=== PATIENT | male | born 1960 | race Caucasian/White ===

== ENCOUNTER 2017-03-01 05:49 | Inpatient (IN) | payer BC, OTHER ==
[2017-03-01] MEDS ORDERED: TRANEXAMIC ACID 1,000 MG in NORMAL SALINE 100 ML IV PRN (06:00)
[2017-03-01] MEDS ORDERED: ceFAZolin SODIUM 1 GM VIAL IV PRN (06:00)
[2017-03-01] MEDS ORDERED: RINGER'S SOLUTION,LACTATED 1,000 ML IV PRN (06:00)
[2017-03-01] MEDS ORDERED: MORPHINE SULFATE 15 MG TABLET.SA PO PRN (06:00)
[2017-03-01] MEDS ORDERED: ROPIVACAINE HCL/PF 100 MG, EPINEPHrine 0.2 MG, KETOROLAC TROMETHAMINE 30 MG in NORMAL S... IJ PRN (06:00)
[2017-03-01] MEDS ORDERED: RINGER'S SOLUTION,LACTATED 700 ML IV ONE (07:40)
[2017-03-01] MEDS ORDERED: RINGER'S SOLUTION,LACTATED 1,000 ML IV ONE ×2 (08:10→09:10)
[2017-03-01] MEDS ORDERED: ZOLPIDEM TARTRATE 5 MG TABLET PO PRN (09:50)
[2017-03-01] MEDS ORDERED: PROMETHAZINE HCL 5 MG in DEXTROSE 5 % IN WATER 50 ML IV PRN ×2 (09:50)
[2017-03-01] MEDS ORDERED: ONDANSETRON HCL/PF 2 MG/ML VIAL IV PRN (09:50)
[2017-03-01] MEDS ORDERED: ACETAMINOPHEN 500 MG TABLET PO PRN (09:50)
[2017-03-01] MEDS ORDERED: MAGNESIUM HYDROXIDE 30 ML UDC PO PRN (09:50)
[2017-03-01] MEDS ORDERED: DEXTROSE 5%-LACTATED RINGERS 1,000 ML IV PRN (09:50)
[2017-03-01] MEDS ORDERED: diphenhydrAMINE HCL 50 MG/ML VIAL IV PRN (09:50)
[2017-03-01] MEDS ORDERED: MAG HYDROX/ALUMINUM HYD/SIMETH 30 ML UDC PO PRN (09:50)
--- NOTE | 2017-03-01 09:54 | OR ---
Operative Report - Dictated Report Narrative: Date: 03/01/2017 Preoperative diagnosis: Left Knee degenerative joint disease. Postoperative diagnosis: Left Knee degenerative joint disease. Procedure: Left Total knee arthroplasty. Surgeon: Blaise Flores M.D. Rn International: Kendall Machado PA-C Anesthesia: Spinal with regional block and local periarticular joint injection. Complications: None Specimens: Bone for disposal. Estimated blood loss: Minimal. Tourniquet time: 103 Minutes at 325 millimeters of mercury. Retained implants: Depuy Attune size 8 left lugged cemented posterior stabilized femoral component. Size 8 fixed-bearing cemented tibial platform. 8 by 5 millimeter posterior stabilized cross-linked tibial insert. 41 millimeter medialized patella button. Indications: Mr. Lacey is a 56-year-old gentleman who has had long-standing left knee pain and arthrosis. This patient was followed in my clinic for period of time with significant complaints of left knee pain consistent with arthritic changes. He had failed conservative measures including, but not limited to, activity modification, passage of time, medications, and other conservative measures. Patient wished to proceed with surgical treatment. The risks, benefits, and alternatives were discussed in clinic. The risks of , blood clots, bleeding, infection, nerve/tendon blood vessel/ injury, malposition of components, intraoperative fracture, postoperative limited range of motion, persistent pain, failure of components, and need for additional procedures. Patient wished to proceed consent was obtained after answering all questions. Procedure: After marking the correct extremity on the floor, the patient was taken to the operating room. A timeout was performed. IV antibiotics consisting of Ancef were administered prior to the procedure. A regional followed by spinal anesthetic was induced by anesthesia, per my request, on the operative table with all bony prominences well-padded. Curtis catheter was placed, and a bump was placed under the operative side buttock. SCDs and STEPHANIE hose were utilized on the nonoperative leg. A well-padded tourniquet was applied to the operative thigh. The operative leg was then pre-scrubbed with alcohol prepped, and draped in a standard sterile fashion. After exsanguinating the extremity with an Esmarch bandage, the tourniquet was inflated. After marking out the anterior knee for standard incision centered over the patella, the skin was incised and dissected down to the joint retinaculum. The joint retinaculum was marked out as well as the horizontal axis of the patella, and a standard medial parapatellar arthrotomy was then made. The most proximal aspect of the quadriceps tendon and the patella tendon insertion were protected from release. A partial synovectomy was performed as well as a resection of the infrapatellar fat pad. The distal femoral fat pad proximal to the trochlea was also resected using cautery. The soft tissues were elevated off the medial aspect of the proximal tibia using a Horn elevator ensuring that we did not transect the medial collateral ligament. Upon initial evaluation range of motion was approximately 5 degrees to 120 degrees of flexion. There were signs of advanced arthrosis in the medial, lateral, and patellofemoral joint spaces. There were large marginal osteophytes which were removed with a rongeur. The knee was hyperflexed and the patella was tucked laterally. Protecting the surrounding soft tissues with Homans, an entry drill was placed down the femoral canal using Whitesides line for guidance into the entry point. The intramedullary femoral alignment william was utilized in order to cut the distal femur in 5 degrees of valgus resecting 10 millimeters of bone. Next the distal femur was sized to a size 8. A posterior referencing guide was utilized to place the distal femoral cutting block in 3 degrees of external rotation. This was pinned into place. The rotation was confirmed both visually and based on anatomic landmarks. The 4 in 1 cutting jig of the appropriate size was utilized in order to make all bony cuts. The angle wing was used to ensure no notching. Retractors were utilized in order to protect surrounding soft tissues. This cut did not result in any excessive notching. We then cut the box centered over the distal femur. This allowed for resection of the anterior and posterior cruciate ligaments. I then turned my attention to the preparation of the tibia. Using an extra medullary tibial alignment william, 2 millimeters of bone was resected off the medial articular surface. This was made perpendicular to the mechanical axis of the joint with the alignment william centered over the ankle mortise. The alignment william was checked and was noted to be parallel to the mechanical axis, centered over the medial one third of the tibial tubercle, paralleling the anterior surface of the tibia. We then turned our attention to the remaining meniscus and soft tissues. These were removed while protecting the surrounding ligaments and soft tissues. The marginal osteophytes off the anterior, posterior, medial, lateral aspects of the femur and tibia were removed. The tibia was sized out to a size 8. Next the tibia was drilled and punched in an externally rotated position. Next the trial femur and a series of tibial inserts were utilized in order to allow for full extension and maximal flexion. It was found that a 5 millimeter insert gave the best range of motion and stability at multiple flexion points as well as at full extension there was less than 2 mm of gapping both medially and laterally. There is minimal anterior translation with the knee at 90 degrees of flexion and no signs of being able to dislocate the knee. The patella was then prepared. The initial thickness was 26 millimeters. This was reamed down to 15 millimeters parallel to the anterior surface of the patella. It was sized out to a size 41 medialized patella button. This was then drilled and trialed. Without any medial restraint the patella tracked appropriately and did not sublux or dislocate. At this point, it was felt these were the appropriate sized implants, and all trials were removed. The standard periarticular joint injection consisting of ropivacaine, Toradol, and epinephrine were injected into the periarticular joint tissues. The bony surfaces were thoroughly irrigated with a pulsatile- suction saline irrigation device. A bone plug from the prior resected anterior chamfer cut was placed into the drill hole at the distal femur. The bony surfaces were then dried in preparation for placement of the implants. The cement was vacuum mixed per the district or district office director's instructions. The cement was placed on the dry bony surfaces and posterior aspect of the implants. The implants were impacted into place, removing all extruded cement. At this point anesthesia administered tranexamic acid per protocol intravenously. The knee was placed in extension with axial loading with the trial insert while the cement cured. Once the cement cured, all remaining extruded cement was removed. The knee was placed through a range of motion with the trial insert to ensure appropriate range of motion and stability. Final range of motion was approximately 0 to 120 degrees. The knee was again thoroughly irrigated with pulsatile saline lavage. The final polyethylene insert was then impacted into place ensuring no retained soft tissues. The remaining periarticular joint injection was injected. A medium Hemovac drain was placed exiting superior laterally. The knee was then placed over a triangle and the arthrotomy was closed with interrupted #1 Vicryl after thoroughly irrigating the joint. The deep and subcutaneous tissues were closed with interrupted 0 and 3-0 Vicryl respectively. Skin was closed with a running subcutaneous 3-0 Monocryl and Prineo Dermabond dressing. 4 x 4's, Sof-Rol, and a full leg Velasquez wrap were applied. All sponge, needle, blade, and instrument counts were correct prior to closing the wounds. Postoperative condition: The patient was awoken and transferred to the postanesthesia care unit in stable condition. Plan is to be admitted to the inpatient medical/surgical floor postoperatively for 24 hours of IV antibiotics , physical therapy, occupational therapy, and medical comanagement. Patient will be weightbearing as tolerated with range of motion as tolerated. DVT prophylaxis will be with SCDs, STEPHANIE hose, and pharmacological anticoagulation. Anticipated hospital stay is approximately 2-4 days.
[2017-03-01] MEDS ORDERED: HYDROmorphone HCL 2 MG/ML VIAL IV PRN (09:56)
--- NOTE | 2017-03-01 10:17 | OR ---
Anesthesia Procedure Note - Anesthesia Procedure Note Date of Service: 03/01/17 Narrative: Vital Signs - Last Taken Temp 36.5 C 03/01/17 07:07 Pulse 70 03/01/17 07:07 Resp 16 03/01/17 07:07 BP 131/93 03/01/17 07:07 Pulse Ox 97 03/01/17 07:07 O2 Oxygen Delivery Method Room Air 03/01/17 10:14 ANESTHESIA PROCEDURE NOTE Date of Procedure: 03/01/2017. Time of procedure: 739. Performed by: Romel Frazier CRNA Engineering Faculty Member: None. Preprocedure diagnosis: Left total knee arthroplasty. Post procedure diagnosis: Same. Procedure: Left ultrasound guided femoral block for postoperative analgesia. Indications: The patient is a 56 -year-old male, who is been consulted for a nerve bloc for postoperative pain controll. Findings: See below. Details of the procedure: The tissue over the intended target site was cleansed with ChloraPrep. 1 ml Lidocaine 1 % was infiltrated to the skin and subcutaneous tissue. Under sterile technique and ultrasound guidance a 21-gauge block needle was inserted anterior to the left femoral nerve . 30 mL's of 0.5% bupivacaine plus epinephrine 1 200,000 was injected after negative aspiration for blood. Spread of local anesthetic surroundind the femoral nerve was observed throughout the injection with ultrasound. The needle was removed intact. No complications were noted. The images were retained in the Hospital medical database . EBL: Minimal. Fluids: N/A. Specimen: N/A. Post procedure condition: The patient tolerated the procedure well. No complications were noted. Thank you for this consultation. Romel Frazier CRNA
[2017-03-01] MEDS: KETOROLAC TROMETHAMINE 30 MG/ML VIAL IV SCH ×3 (10:55→22:49)
[2017-03-01] MEDS: ceFAZolin SODIUM 1 GM in DEXTROSE 5 % IN WATER 100 ML IV SCH ×6 (11:03→22:49)
[2017-03-01] MEDS: oxyCODONE HCL/ACETAMINOPHEN 1 TAB TABLET PO PRN ×2 (13:01→18:32)
[2017-03-01] MEDS: SENNOSIDES/DOCUSATE SODIUM 1 TAB TABLET PO SCH (20:06)
[2017-03-01] MEDS: MORPHINE SULFATE 15 MG TABLET.SA PO SCH (20:06)
[2017-03-02] MEDS: oxyCODONE HCL/ACETAMINOPHEN 1 TAB TABLET PO PRN ×5 (03:13→22:44)
[2017-03-02] MEDS: KETOROLAC TROMETHAMINE 30 MG/ML VIAL IV SCH ×4 (03:14→21:04)
[2017-03-02 05:29] LABS: Hematocrit 36.6 % (42.0-52.0); Hemoglobin 12.5 gm/dL (13.5-18.0); Mean Cell Volume 85.1 fl (78-100); Mean Corpuscular Hemoglobin 29.1 pg (27-31); Mean Corpuscular Hgb Conc 34.2 g/dl (32-36); Mean Platelet Volume 11.5 fl (6.0-9.5); Platelet Count 107 K/mm3 (150-450); Red Cell Distribution Width 13.2 % (11.5-14.0); White Blood Count 6.4 K/mm3 (4.0-10.5)
[2017-03-02 05:47] LABS: Anion Gap 8.6 mmol/L (6.8-13.8); BUN/Creatinine Ratio 17.3 (9.0-21.6); Calcium * 8.1 mg/dL (7.9-10.9); Carbon Dioxide 30.2 mmol/L (24-32.6); Estimated Creat Clear 105.1; Potassium 3.8 mmol/L (3.4-4.6)
--- NOTE | 2017-03-02 08:12 | PN ---
Subjective - Date and Time Seen Date: 03/02/17 Time: 08:09 Subjective Narrative: Patient doing well. Pain controlled. No nausea. No lightheadedness. No CP/ SOB. No complaints. Objective Objective Narrative: Bandages C/D/I. N/V intact LLE. Calf supple. 2+ Dorsalis Pedis pulse. Drain intact. - Vitals Vitals: Last Vital Signs Temp 36.6 C 03/02/17 03:00 Pulse 67 03/02/17 03:00 Resp 18 03/02/17 03:00 BP 130/72 03/02/17 03:00 Pulse Ox 94 03/02/17 03:00 - Abnormal Lab Findings Abnormal Lab Findings: Abnormal Lab Results 03/02/17 Range/Units 05:12 RBC 4.30 L (4.7-6.0) M/mm3 Hgb 12.5 L (13.5-18.0) gm/dL Hct 36.6 L (42.0-52.0) % Plt Count 107 L (150-450) K/mm3 MPV 11.5 H (6.0-9.5) fl - Exam Constitutional: Present: Alert, Oriented x3, Cooperative, No distress Cauti Physician Documentation - Urinary Catheter Management 2-way Urethral Date of Insertion: 03/01/17 Time of Insertion: 08:00 Urethral (Curtis) Date of Insertion: 03/01/17 Date of Removal: 03/02/17 Time of Removal: 07:09 Assessment/Plan - Problems/Diagnosis (1) Status post total left knee replacement Problem: Acute Narrative: PT, anticoagulation, pain control, pull drain today, will need wheeled walker for 4-6 weeks postop. (2) Acute blood loss anemia Problem: Acute Narrative: asymptomatic, recheck labs in am
[2017-03-02] MEDS: MORPHINE SULFATE 15 MG TABLET.SA PO SCH ×2 (09:26→21:04)
[2017-03-02] MEDS: ENOXAPARIN SODIUM 40 MG/0.4 ML SYRG SC SCH (09:26)
[2017-03-02] MEDS: SENNOSIDES/DOCUSATE SODIUM 1 TAB TABLET PO SCH (21:04)
[2017-03-03] MEDS: KETOROLAC TROMETHAMINE 30 MG/ML VIAL IV SCH (03:03)
[2017-03-03 05:44] LABS: Hematocrit 33.9 % (42.0-52.0); Hemoglobin 11.6 gm/dL (13.5-18.0); Mean Cell Volume 85.4 fl (78-100); Mean Corpuscular Hemoglobin 29.2 pg (27-31); Mean Corpuscular Hgb Conc 34.2 g/dl (32-36); Mean Platelet Volume 11.7 fl (6.0-9.5); Platelet Count 98 K/mm3 (150-450); Red Blood Count 3.97 M/mm3 (4.7-6.0); White Blood Count 5.1 K/mm3 (4.0-10.5)
[2017-03-03 05:58] LABS: Anion Gap 8.1 mmol/L (6.8-13.8); BUN/Creatinine Ratio 17.1 (9.0-21.6); Calcium * 8.3 mg/dL (7.9-10.9); Carbon Dioxide 29.8 mmol/L (24-32.6); Estimated Creat Clear 103.9; Potassium 3.9 mmol/L (3.4-4.6)
[2017-03-03] MEDS: oxyCODONE HCL/ACETAMINOPHEN 1 TAB TABLET PO PRN ×2 (07:27→11:42)
[2017-03-03 07:56] VITALS: BP 124/65
--- NOTE | 2017-03-03 09:30 | DS ---
(1) Acute blood loss anemia Problem: Acute (2) Status post total left knee replacement Problem: Acute Description of Stay: Mr. Lacey was admitted to the floor after undergoing left total knee arthroplasty. Tolerated this well. Was admitted to the floor postoperatively for 24 hours of IV antibiotics, pain control, medical comanagement, and occupational and physical therapy. OT and PT were consulted to assist with activities of daily living and ambulation. Was made weightbearing as tolerated with range of motion as tolerated. Pain was initially controlled with IV regimen. This was transitioned to oral once tolerating a by mouth intake. Was resumed on home diet and medications. Had a Curtis catheter inserted and the operating room which was discontinued on postoperative day 1. A drain was placed intraoperatively into the knee which was discontinued on postoperative day 1. Lovenox SCD and STEPHANIE hose were utilized for DVT prophylaxis. Vital signs remained stable to the hospital course. Serial labs were obtained which showed a final hemoglobin of 11.6 grams. BMP was reviewed and was stable. Physical examination throughout the hospital course showed an extremity that had sensation that was intact to light touch, palpable pulses, a benign wound, motor intact to the toes, ankle, and knee. Knee range of motion was approximately 10 degrees to 60 degrees. Once an oral pain regimen was tolerated and physical therapy goals were met, it was felt that they were stable for discharge to home. Instructions: Continue with weightbearing as tolerated and range of motion as tolerated. It is okay to shower and get the wound wet as long as there is no drainage from the wound. Do not bathe or soak the wound. If there is any drainage from the wound keep the wound clean and dry and cover with dry gauze and tape. Change every 2-3 days as needed if there is any drainage. Cover wound while showering if there is any drainage. Continue with physical therapy. Resume home diet. Report any fever over 101.5 Fahrenheit, uncontrolled pain, increased drainage, foul odor of drainage, new or increased calf pain or shortness of breath, or any other significant complaints. A 325mg dialy aspirin will be started after finishing anticoagulation if not allergic. Continue with STEPHANIE hose on the operative extremity until instructed otherwise. No driving until instructed otherwise. Follow up in approximately 10-14 days. Procedures Performed: see notes below List Procedures: Left total knee arthroplasty Discharge Disposition: Home self care Disposition: Home self-care Condition: Good Discharge Activity: Activity as tolerated, Weight bearing Discharge Diet: General/regular food Half-Way Therapy: Physicial Therapy Additional Patient Instructions (free text): Follow up with Dr. Flores on March at 9:45 am. Prescriptions (Any new or edited meds): Enoxaparin Sodium [Lovenox] 40 mg SC Q24H #7 disp.syrin Morphine Sulfate [Ms Contin] 15 mg PO Q12H #20 tablet.sa oxyCODONE HCL/ACETAMINOPHEN [Percocet 5 MG/325 MG] 2 tab PO Q4H PRN #90 tablet PRN Reason: Moderate Pain Complete Home Medications List: Complete Home Medication List: Naproxen Sodium [Aleve] 220 mg PO DAILY 02/16/17 Enoxaparin Sodium [Lovenox] 40 mg SC Q24H #7 disp.syrin 03/03/17 Morphine Sulfate [Ms Contin] 15 mg PO Q12H #20 tablet.sa 03/03/17 Sennosides/Docusate Sodium [Senokot-S] 2 tab PO HS tablet 03/03/17 oxyCODONE HCL/ACETAMINOPHEN [Percocet 5 MG/325 MG] 2 tab PO Q4H PRN #90 tablet 03/03/17 Amb Orders for Discharge: PT Evaluation and Treatment Facility: [facility], Location: Rehabilitation Services
[2017-03-03] MEDS: ENOXAPARIN SODIUM 40 MG/0.4 ML SYRG SC SCH (10:18)
[2017-03-03] MEDS: MORPHINE SULFATE 15 MG TABLET.SA PO SCH (10:18)
== END 2017-03-03 13:30 | disposition home or self-care (01) | DRG 470 ==
LOC: MS 05:49
PROVIDERS: ADMIT Orthopaedic Surgery; ATTEND Orthopaedic Surgery
PROC: 0SRD0J9 Replacement of Left Knee Joint with Synthetic Substitute, Cemented, Open Approach (ICD-10-PCS; principal; 2017-03-01 08:00)
DX: M17.12 Unilateral primary osteoarthritis, left knee (principal); D62 Acute posthemorrhagic anemia

== ENCOUNTER 2019-06-29 10:17 | Observation (INO) ==
[2019-06-29 10:49] LABS: Hematocrit 49.3 % (42.0-52.0); Hemoglobin 16.9 gm/dL (13.5-18.0); Mean Cell Volume 91.5 fl (78-100); Mean Corpuscular Hemoglobin 31.4 pg (27-31); Mean Corpuscular Hgb Conc 34.3 g/dl (32-36); Mean Platelet Volume 11.9 fl (8-11.3); Neutrophil # 3.2 K/mm3 (1.3-6.0); Neutrophil % 68.4 % (42-75.0); Platelet Count 152 K/mm3 (150-450); Red Blood Count 5.39 M/mm3 (4.7-6.0); Red Cell Distribution Width 13.1 % (11.5-14.0); White Blood Count 4.7 K/mm3 (4.0-10.5)
[2019-06-29 11:10] LABS: Albumin * 3.6 gm/dl (3.4-5.0); Anion Gap 12.7 mmol/L (6.8-13.8); BUN/Creatinine Ratio 19.5 (9.0-21.6); Bilirubin, Total 0.8 mg/dL (0.0-1.1); Ca. Corrected For Albumin 8.8 mg/dL (8.4-10.2); Calcium * 8.8 mg/dL (7.9-10.9); Carbon Dioxide 26.5 mmol/L (24-32.6); Potassium 4.2 mmol/L (3.4-4.6); Total Protein 6.8 gm/dL (6.2-8.2)
[2019-06-29 11:11] LABS: Troponin I 0.017 ng/mL (0.00-0.10)
--- NOTE | 2019-06-29 11:21 | ERNOTE ---
Dyspnea - Date Date of Service: 06/29/19 - General Presenting Symptoms: shortness of breath Time Seen by Provider: 06/29/19 10:27 Source: patient Exam Limitations: no limitations - Immun/Allergies/Home Medications Immunizations: IMMUNIZATION HX Immunizations Up to Date Yes Allergies/Adverse Reactions: Allergies Penicillins Allergy (Severe, Verified 03/30/18 12:15) hives and throat swelling Home Medications: HOME MEDICATIONS NK 02/22/18 [Last Taken Unknown] - History of Present Illness Narrative: Patient presents to the ED for SOB. He has been having progressive SOB for the last 3 months. He relates that he has become concerned more because his sister just from an aneurysm and he has a strong family history of heart disease. He does feel stress but no chest pain, just tightness for the last 3 months. No fever or vomiting. SOB worse with exertion. No calf pain or leg swelling. Has not seen anyone else for this. Severity: moderate Treatment MANAGEMENT ANALYST: none Initiating event: Denies: upper resp illness Frequency of episodes: Reports: frequent episodes Modifying Factors - (Improves): Reports: nothing Modifying Factors (Worsens): Reports: activity Associated Symptoms-Dyspnea: Denies: fever/chills, cough, wheezing, ankle/leg swelling, weakness Prior Treatment: Denies: recently seen Review of Systems - Review of Systems Constitutional: Absent: fever EYE: Present: no symptoms reported ENT: Present: no symptoms reported Respiratory: Present: shortness of breath Cardiology: Present: other - cehst tightness. Absent: chest pain Gastrointestinal/Abdominal: Absent: abdominal pain Genitourinary: Absent: dysuria Musculoskeletal: Present: no symptoms reported All Other Systems: All systems neg except as marked Medical History (Last Reviewed 06/29/19 @ 11:19 by Isreal Price MD) Acute blood loss anemia (Acute) Left knee DJD Onset Date: Unknown Left knee pain Onset Date: Unknown Rotator cuff tear Onset Date: Unknown Surgical History: Surgical History (Last Reviewed 06/29/19 @ 11:19 by Isreal Price MD) Status post total left knee replacement (Chronic) 03/01/17 Sandra History of adenoidectomy Onset Date: Unknown History of repair of rotator cuff Onset Date: 2007 left shoulder, [facility] Dr Benjamin History of tonsillectomy Onset Date: Unknown History of total knee arthroplasty Onset Date: 03/01/17 WENDY Flores Family History: Family History (Last Reviewed 06/29/19 @ 11:19 by Isreal Price MD) Mother , 87-old age Dementia Father , 47 Myocardial infarction Sister Alive and well Brother Alive and well Social History: (Last Reviewed 06/29/19 @ 11:19 by Isreal Price MD) Social History: fdc: No Marital status: household members: spouse current occupational status: employed 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 Highest education level completed: high school graduate Service: No Tobacco: Smoking Status: Current every day smoker tobacco type: cigarettes Smoking cigarettes per day: 4 Alcohol: alcohol intake: current alcohol intake frequency: holiday/special occasion Substance Use: substance use type: does not use Dietary Habits: caffeine: Yes Type: coffee Exercise: Physical activity functional status: normal ROM and activity Moderate/strenuous exercise - number of days: 4 Physical Exam - Physical Exam General Appearance: Present: alert, no apparent distress Head Exam: Present: normal inspection, no evidence of injury Eye Exam: Normal inspection: bilateral, PERRL: bilateral Ears, Nose, Throat: Present: normal ENT inspection Neck: Present: normal inspection Respiratory: Present: no respiratory distress, normal breath sounds, no accessory muscle use, lungs clear Cardiovascular/Chest: Present: regular rate, rhythm, normal peripheral pulses Gastrointestinal/Abdominal: Present: normal bowel sounds, nontender, nondistended, soft Back Exam: Absent: CVA tenderness (R), CVA tenderness (L) Extremity Exam: Present: normal inspection, non-tender, normal range of motion, no edema Neurological Exam: Present: alert, no motor/sensory deficits Skin Exam: Present: normal color, warm/dry Progress - Results and Orders Patient's Lab Results:: I have reviewed the patient's lab results. - Vital Signs Patient's Vital Signs:: I have reviewed the patient's vital signs. Vital Signs: Vital Signs 06/29/19 10:27 Temperature 36.1 C Pulse Rate 85 Respiratory Rate 14 Blood Pressure 116/81 O2 Sat by Pulse Oximetry 99 - EKG EKG #1 EKG: NSR EKG read: Interp. by me EKG Comments: NSR rate 85. PVC. Three are diffuse non-specific ST/T wave changes without clear evidence of STEMI. THis is changed fromlast EKG. - X-Ray X-Ray #1 X-Ray: chest Interpretation: Interp. by me X-ray Comments: No real time radiology reads. New onset CHF by my interpretation. - CT/Ultrasound CT/Ultrasound Narrative: I reviewed official radiology report for CT chest. - Progress/Reassessment Chief Complaint: Dyspnea Progress Note-Subjective: 06/29/19 13:52 Patient has new onset CHF with EKG changes. IV Lasix given and 500 cc urine ou tput. Troponin negative but EKF is changed from prior and acute new pulmonry edema on CXR. Significant family history of cardiac Dz and no PCP for f/u and no prior w/u. All Sx new and have not been previously evaluated. D/W Dr Monsalve, will sha diuresis, r/o and further work up. Patient agreeable. Departure Clinical Impression: New onset of congestive heart failure, Nonspecific ST-T wave electrocardiographic changes, Pulmonary edema - Departure Disposition: Still a patient Condition: Stable
[2019-06-29] MEDS ORDERED: FUROSEMIDE 10 MG/ML VIAL IV ONE (11:36)
--- NOTE | 2019-06-29 18:43 | HP ---
Chief Complaint - Chief Complaint Date of Service: 06/29/19 Time of Service: 18:25 Chief Complaint: shortness of breath History of Present Illness: Nir Duron is a 58-year-old white male with no significant past medical history in the past who was admitted on 06/29/2019 for shortness of breath. 3 months prior to admission the patient started noticing that he would be getting more short of breath in the gym which is new to him. Over time he started having increasing shortness of breath associated with orthopnea. He denies any chest pain or palpitation but does feel some chest heaviness at times with stress. 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 He said his last one was 4 months ago and was normal. He denies any weight gain, swelling of extremities, recent fever or chills, recent upper respiratory tract infections or flulike symptoms. He denies any calf pains or intermittent claudications. The patient also says he was never a strong cigarette smoker taking it only about 3 cigarettes/day. He also does not drink alcohol. He does have a strong family history of cardiac disease. His father of heart attack in his late 40s early 50s. His sister just from an aneurysm recently. In the emergency room his hemoglobin was 16.9, WBC of 4.7, creatinine of 1.13, GFR of 71, BNP of 656, troponin of less than 0.0117. His chest x-ray showed no acute cardiopulmonary findings, except for COPD findings. His EKG showed normal sinus rhythm with diffuse ST-T wave depression . This is a new finding compared to his old EKG. his d-dimer was elevated I 0.[address] angiogram of his chest done showed no evidence of pulmonary embolism, positive fluid overload/possible congestive heart failure. He was given IV Lasix and was admitted for observation. Medical History (Last Reviewed 06/29/19 @ 14:41 by Rosalina Arellano RN) Acute blood loss anemia (Acute) Left knee DJD Onset Date: Unknown Left knee pain Onset Date: Unknown Rotator cuff tear Onset Date: Unknown Surgical History: Surgical History (Last Reviewed 06/29/19 @ 14:41 by Rosalina Arellano RN) Status post total left knee replacement (Chronic) 03/01/17 Sandra History of adenoidectomy Onset Date: Unknown History of repair of rotator cuff Onset Date: 2007 left shoulder, [facility] Dr Benjamin History of tonsillectomy Onset Date: Unknown History of total knee arthroplasty Onset Date: 03/01/17 WENDY Flores Family History: Family History (Last Updated 06/29/19 @ 14:43 by Rosalina Arellano, RN) Mother , 87-old age Dementia Father , 47 Myocardial infarction Sister Alive and well Aneurysm Brother Myocardial infarction Alive and well Social History: (Last Reviewed 06/29/19 @ 14:43 by Rosalina Arellano, TASHIA) Social History: alf: No Marital status: household members: spouse current occupational status: employed 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 Highest education level completed: high school graduate Service: No Tobacco: Smoking Status: Current every day smoker tobacco type: cigarettes Smoking cigarettes per day: 4 Alcohol: alcohol intake: current alcohol intake frequency: holiday/special occasion Substance Use: substance use type: does not use Dietary Habits: caffeine: Yes Type: coffee Exercise: Physical activity functional status: normal ROM and activity Moderate/strenuous exercise - number of days: 4 Review Of Systems (GEN) - Review of Systems Generalized/Overall Review: Absent: Weakness, Fever EENTM: Absent: Blurred Vision Respiratory: Present: Shortness of Breath, Orthopnea. Absent: Cough, Wheezing Cardiac: Present: Other - chest tightness/heaviness. Absent: Chest Pain, Edema, Palpitations Abdominal: Absent: Nausea, Vomiting, Abdominal Pain Genitourinary: Absent: Urgency, Frequency Musculoskeletal: Present: Joint Pain Neurological: Absent: Headache Skin: Absent: Lesions, Rash Immunizations: IMMUNIZATION HX Immunizations Up to Date Yes Allergies/Adverse Reactions: Allergies Allergy/AdvReac Type Severity Reaction Status Date / Time Penicillins Allergy Severe hives and Verified 06/29/19 14:43 throat swelling Home Medications: HOME MEDICATIONS NK 02/22/18 [Last Taken Unknown] Exam - Exam Vital Signs: Vital Signs - Last Taken Temp 36.3 C 06/29/19 14:44 Pulse 77 06/29/19 14:44 Resp 14 06/29/19 14:44 BP 112/72 06/29/19 14:44 Pulse Ox 98 06/29/19 14:44 Constitutional: Present: Alert, Oriented x3, Cooperative ENT Exam: Present: hearing grossly normal Eye Exam: bilateral eye: normal inspection, PERRL, EOMI Neck: Present: supple. Absent: lymphadenopathy (R), lymphadenopathy (L) Respiratory: Present: normal breath sounds, No rales, No wheezing Cardiovascular/Chest: Present: normal peripheral pulses, regular rate, rhythm, no JVD, no murmur Abdomen: Present: Normal bowel sounds, soft, nontender, nondistended Extremity: Present: no pedal edema, no calf tenderness Diagnostic Studies: Abnormal Lab Results 06/29/19 06/29/19 06/29/19 Range/Units 10:35 10:35 10:35 MCH 31.4 H (27-31) pg MPV 11.9 H (8-11.3) fl Lymphocytes # 0.94 L (1.5-3.5) k/mm3 D-Dimer 0.54 H (0.19-0.49) ug/mL B-Natriuretic Peptide 656 H (5-175) pg/mL Laboratory Results WBC 4.7 K/mm3 (4.0-10.5) 06/29/19 10:35 RBC 5.39 M/mm3 (4.7-6.0) 06/29/19 10:35 Hgb 16.9 gm/dL (13.5-18.0) 06/29/19 10:35 Hct 49.3 % (42.0-52.0) 06/29/19 10:35 MCV 91.5 fl (78-100) 06/29/19 10:35 MCH 31.4 pg (27-31) H 06/29/19 10:35 MCHC 34.3 g/dl (32-36) 06/29/19 10:35 RDW 13.1 % (11.5-14.0) 06/29/19 10:35 Plt Count 152 K/mm3 (150-450) 06/29/19 10:35 MPV 11.9 fl (8-11.3) H 06/29/19 10:35 Immature Gran % (Auto) 0.20 % (0.001-0.429) 06/29/19 10:35 Immature Gran # (Auto) 0.01 K/mm3 (0.000-0.0310) 06/29/19 10:35 Neutrophils % 68.4 % (42-75.0) 06/29/19 10:35 Lymphocytes % 20.0 % (20-51) 06/29/19 10:35 Monocytes % 8.7 % (0.0-9) 06/29/19 10:35 Eosinophils % 2.1 % (0.0-3.0) 06/29/19 10:35 Basophils % 0.6 % (0.0-1.0) 06/29/19 10:35 Nucleated RBC % 0.0 k/mm3 (0-1) 06/29/19 10:35 Neutrophils # 3.2 K/mm3 (1.3-6.0) 06/29/19 10:35 Lymphocytes # 0.94 k/mm3 (1.5-3.5) L 06/29/19 10:35 Monocytes # 0.4 k/mm3 (0.0-1.0) 06/29/19 10:35 Eosinophils # 0.1 k/mm3 (0.0-0.7) 06/29/19 10:35 Absolute Basophils 0.0 k/mm3 (0.0-0.1) 06/29/19 10:35 D-Dimer 0.54 ug/mL (0.19-0.49) H 06/29/19 10:35 Sodium 140 mmol/L (132-142) 06/29/19 10:35 Plasma Sodium 140 mmol/L (130-142) 06/29/19 10:35 Potassium 4.2 mmol/L (3.4-4.6) 06/29/19 10:35 Chloride 105 mmol/L (97-106) 06/29/19 10:35 Carbon Dioxide 26.5 mmol/L (24-32.6) 06/29/19 10:35 Anion Gap 12.7 mmol/L (6.8-13.8) 06/29/19 10:35 BUN 22 mg/dL (6-23) 06/29/19 10:35 Creatinine 1.13 mg/dL (0.4-1.4) 06/29/19 10:35 Est GFR (Non-Af Amer) 71 mL/min (60-130) 06/29/19 10:35 BUN/Creatinine Ratio 19.5 (9.0-21.6) 06/29/19 10:35 Random Glucose 103 mg/dL (70-110) 06/29/19 10:35 Calcium 8.8 mg/dL (7.9-10.9) 06/29/19 10:35 Calcium Adj for Albumin 8.8 mg/dL (8.4-10.2) 06/29/19 10:35 Total Bilirubin 0.8 mg/dL (0.0-1.1) 06/29/19 10:35 AST 20 U/L (0-48) 06/29/19 10:35 ALT 23 U/L (19-67) 06/29/19 10:35 Alkaline Phosphatase 83 U/L (50-170) 06/29/19 10:35 Troponin I Less than 0.017 ng/mL (0.00-0.10) 06/29/19 17:00 B-Natriuretic Peptide 656 pg/mL (5-175) H 06/29/19 10:35 Total Protein 6.8 gm/dL (6.2-8.2) 06/29/19 10:35 Albumin 3.6 gm/dl (3.4-5.0) 06/29/19 10:35 Assessment/Plan - Narrative Narrative: Nir is an 58-year-old white male who was admitted for increasing shortness of breath associated with orthopnea. His CT scan of his chest showed fluid overload/pulmonary congestion. He did have EKG findings of ST T wave depression with normal troponins x2. We will repeat an EKG. He did get IV Lasix in the emergency room and has noticed clinical improvement with his shortness of breath after diuresing. Will observe him overnight and likely repeat a third EKG with troponin in the morning . If still negative will discharge him home and schedule him an echocardiogram and a treadmill nuclear stress test as an outpatient. If those are within normals we may have to repeat the pulmonary function tests as his chest x-ray did show COPD findings. - Assessment/Plan (1) New onset of congestive heart failure Problem: Acute (2) Nonspecific ST-T wave electrocardiographic changes Problem: Acute (3) Pulmonary edema Problem: Acute (4) Status post total left knee replacement Problem: Chronic
[2019-06-30] MEDS ORDERED: FUROSEMIDE 10 MG/ML VIAL IV ONE (07:00)
[2019-06-30 07:04] LABS: Anion Gap 12.5 mmol/L (6.8-13.8); BUN/Creatinine Ratio 19.8 (9.0-21.6); Blood Urea Nitrogen 21 mg/dL (6-23); Calcium * 8.7 mg/dL (7.9-10.9); Carbon Dioxide 26.6 mmol/L (24-32.6); Chloride 104 mmol/L (97-106); Estimated Creat Clear 78.6; Glucose * 104 mg/dL (70-110); Potassium 4.1 mmol/L (3.4-4.6); Sodium 139 mmol/L (132-142)
[2019-06-30 07:06] LABS: Troponin I Less than 0.017 ng/mL (0.00-0.10)
--- NOTE | 2019-06-30 10:16 | DS ---
(1) New onset of congestive heart failure Problem: Acute (2) Nonspecific ST-T wave electrocardiographic changes Problem: Acute (3) Pulmonary edema Problem: Acute (4) Status post total left knee replacement Problem: Chronic Date of Discharge:: 06/30/19 Hospital Course: Nir Duron is a 58-year-old white male with no significant past medical history in the past who was admitted on 06/29/2019 for shortness of breath. 3 months prior to admission the patient started noticing that he would be getting more short of breath in the gym which is new to him. Over time he started having increasing shortness of breath associated with orthopnea. He denies any chest pain or palpitation but does feel some chest heaviness at times with stress. 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 He said his last one was 4 months ago and was normal. He denies any weight gain, swelling of extremities, recent fever or chills, recent upper respiratory tract infections or flulike symptoms. He denies any calf pains or intermittent claudications. The patient also says he was never a strong cigarette smoker taking it only about 3 cigarettes/day. He also does not drink alcohol. He does have a strong family history of cardiac disease. His father of heart attack in his late 40s ea rly 50s. His sister just from an aneurysm recently. In the emergency room his hemoglobin was 16.9, WBC of 4.7, creatinine of 1.13, GFR of 71, BNP of 656, troponin of less than 0.0117. His chest x-ray showed no acute cardiopulmonary findings, except for COPD findings. His EKG showed normal sinus rhythm with diffuse ST-T wave depression . This was a new finding compared to his old EKG. His d-dimer was elevated at 0.[address] angiogram of his chest done showed no evidence of pulmonary embolism, positive fluid overload/possible congestive heart failure. He was given IV Lasix and was admitted for observation. His 2 subsequent troponins were normal. His follow up EKG showed NSR, consider anterolateral and inferior ischemia; NSR with frequent PVC's, consider lateral, inferior ischemia. He did not have CP but has chest tightness when he lays flat in bed. We will discharge him to day with ASA and NTG. We will schedule him an Echocardiogram tomorrow. He will likely need to have ischemic work up like stress test. I talked to Dr. Vera, meatman, and he will see him first on Monday. Procedures Performed: none Results and Findings: Lab Pending Results 06/29/19 10:35: WBC 4.7, RBC 5.39, Hgb 16.9, Hct 49.3, MCV 91.5, MCH 31.4 H, MCHC 34.3, RDW 13.1, Plt Count 152, MPV 11.9 H, Immature Gran % (Auto) 0.20, Immature Gran # (Auto) 0.01, Neutrophils % 68.4, Lymphocytes % 20.0, Monocytes % 8.7, Eosinophils % 2.1, Basophils % 0.6, Nucleated RBC % 0.0, Neutrophils # 3.2, Lymphocytes # 0.94 L, Monocytes # 0.4, Eosinophils # 0.1, Absolute Basophils 0.0 06/29/19 10:35: Sodium 140, Plasma Sodium 140, Potassium 4.2, Chloride 105, Carbon Dioxide 26.5, Anion Gap 12.7, BUN 22, Creatinine 1.13, Est GFR (Non-Af Amer) 71, BUN/Creatinine Ratio 19.5, Random Glucose 103, Calcium 8.8, Calcium Adj for Albumin 8.8, Total Bilirubin 0.8, AST 20, ALT 23, Alkaline Phosphatase 83, Troponin I 0.017, B-Natriuretic Peptide 656 H, Total Protein 6.8, Albumin 3.6 06/29/19 10:35: D-Dimer 0.54 H 06/29/19 17:00: Troponin I Less than 0.017 06/30/19 06:40: Sodium 139, Plasma Sodium 139, Potassium 4.1, Chloride 104, Carbon Dioxide 26.6, Anion Gap 12.5, BUN 21, Creatinine 1.06, Est GFR (Non-Af Amer) 76, BUN/Creatinine Ratio 19.8, Random Glucose 104, Calcium 8.7, Troponin I Less than 0.017 Discharge Location: Home Disposition: Home self-care Condition: Stable Discharge Activity: Activity as tolerated Discharge Diet: Low salt Additional Patient Instructions (free text): Please make an ppointment with Dr. Vera, cardiology , in [facility] this Monday. Prescriptions (Any new or edited meds): Aspirin [Aspirin EC] 81 mg PO DAILY #30 tablet. Transmission Status: Pending to [facility] #[id number] Nitroglycerin 0.4 mg SUBLINGUAL DAILY PRN #30 tab.subl PRN Reason: Chest Pain Transmission Status: Pending to [facility] #[id number] Complete Home Medications List: Complete Home Medication List: Aspirin [Aspirin EC] 81 mg PO DAILY #30 tablet. 06/30/19 Nitroglycerin 0.4 mg SUBLINGUAL DAILY PRN #30 tab.subl 06/30/19 Amb Orders for Discharge: US Echocardiogram Complete * Time Frame: 07/01/19, Facility: [facility], Location: Radiology
[2019-06-30 12:08] VITALS: BP 111/68
== END 2019-06-30 11:30 | disposition home or self-care (01) ==
LOC: ER 10:17 → MS 10:17
PROVIDERS: ADMIT Internal Medicine; ATTEND Internal Medicine
DX: Z96.652 Presence of left artificial knee joint; J81.1 Chronic pulmonary edema; R94.31 Abnormal electrocardiogram [ECG] [EKG]; I50.9 Heart failure, unspecified
CPT/HCPCS: 36415; 71020; 71046; 71275; 80048; 80053; 83519; 83880; 84484; 85025; 85379; 93005; 96374; 96375; 99284; 99285; G0378; Q9967